=== PATIENT | female | born 1950 | race Caucasian/White ===

== ENCOUNTER 2018-02-21 12:27 | Outpatient (CLI) | payer MEDICARE | END 2018-02-21 12:28 | disposition home or self-care (01) | LOC: BICMRI 12:27 | PROVIDERS: ATTEND Family Medicine | DX: M54.32 Sciatica, left side (principal); I26.99 Other pulmonary embolism without acute cor pulmonale; M51.26 Other intervertebral disc displacement, lumbar region; M51.27 Other intervertebral disc displacement, lumbosacral region; M99.83 Other biomechanical lesions of lumbar region; M48.061 Spinal stenosis, lumbar region without neurogenic claudication | CPT/HCPCS: 72148 ==

== ENCOUNTER 2018-07-21 11:19 | Outpatient (CLI) | payer MEDICARE | END 2018-07-21 11:20 | disposition home or self-care (01) | LOC: BICMAMMO 11:19 | PROVIDERS: ATTEND Family Medicine | DX: Z12.31 Encounter for screening mammogram for malignant neoplasm of breast (principal) | CPT/HCPCS: 77063; 77067 ==

== ENCOUNTER 2019-08-12 10:56 | Outpatient (CLI) | payer MEDICARE ==
--- NOTE | 2019-08-12 11:26 | MMO ---
Bilateral MAMMO Bilat Screen [facility]. CLINICAL HISTORY: Patient is 69 years old and is seen for screening. The patient has no family history of breast cancer. The patient has no personal history of cancer. The patient has a history of right Cyst Aspiration in January, - benign and left Excisional Biopsy in 1991 - benign. VIEWS: The views performed were: bilateral craniocaudal with tomosynthesis; bilateral mediolateral oblique with tomosynthesis; and left mediolateral oblique. FILMS COMPARED: The present examination has been compared to prior imaging studies performed at [facility] on 11/25/2014, 06/26/2016, 06/27/2017 and 07/21/2018. This study has been interpreted with the assistance of computer-aided detection. MAMMOGRAM FINDINGS: There are scattered fibroglandular densities. Finding 1: There are stable benign appearing calcifications seen in both breasts. Finding 2: There are stable benign appearing densities seen in both breasts. There are no suspicious masses, suspicious calcifications, or new areas of architectural distortion. IMPRESSION: THERE IS NO MAMMOGRAPHIC EVIDENCE OF MALIGNANCY. A ROUTINE FOLLOW-UP MAMMOGRAM IN 1 YEAR IS RECOMMENDED. THE RESULTS OF THIS EXAM WERE SENT TO THE PATIENT. ACR BI-RADS Category 2 - Benign finding MAMMOGRAPHY NOTE: 1. A negative mammogram report should not delay a biopsy if a dominant of clinically suspicious mass is present. 2. Approximately 10% to 15% of breast cancers are not detected by mammography. 3. Adenosis and dense breasts may obscure an underlying neoplasm. Reported by: KAROLYN MCDOWELL MD Electonically Signed: [id number]
== END 2019-08-12 10:57 | disposition home or self-care (01) ==
LOC: BICMAMMO 10:56
PROVIDERS: ATTEND Family Medicine
DX: Z12.31 Encounter for screening mammogram for malignant neoplasm of breast (principal); Z91.89 Other specified personal risk factors, not elsewhere classified
CPT/HCPCS: 77063; 77067

== ENCOUNTER 2021-01-24 09:15 | Outpatient (CLI) | payer MEDICARE | END 2021-01-24 09:16 | disposition home or self-care (01) | LOC: BICMAMMO 09:15 | PROVIDERS: ATTEND Family Medicine | DX: Z12.31 Encounter for screening mammogram for malignant neoplasm of breast (principal) | CPT/HCPCS: 77063; 77067 ==

== ENCOUNTER 2021-01-30 08:47 | Outpatient (CLI) | payer MEDICARE | END 2021-01-30 08:48 | disposition home or self-care (01) | LOC: BICULT 08:47 | PROVIDERS: ATTEND Family Medicine | DX: N63.10 Unspecified lump in the right breast, unspecified quadrant (principal); N63.20 Unspecified lump in the left breast, unspecified quadrant ==

== ENCOUNTER 2023-06-03 17:22 | Inpatient (IN) | payer MEDICARE ==
[2023-06-03 19:13] LABS: #Monocytes 0.7 thou/uL (0.11-0.59); #Neutrophils 6.4 thou/uL (1.40-6.50); %Basophils 0.5 % (0.0-1.0); %Eosinophils 0.4 % (0.0-10.0); %Lymphocytes 14.2 % (21.0-51.0); %Monocytes 8.1 % (0.0-10.0); %Neutrophils 76.4 % (42.0-75.0); Hematocrit 38.8 % (36.0-47.0); Hemoglobin 13.4 g/dL (12.0-16.0); Mean Corpuscular HGB CONC 34.5 g/dL (32.0-36.0); Mean Corpuscular Hemoglobin 29.7 pg (27.0-31.0); Mean Platelet Volume 11.4 fL (7.4-10.4); Platelet Count 237 10x3/uL (130-400); RBC Distribution Width 13.5 % (11.5-14.5); Red Blood Cell (RBC) Count 4.51 mill/uL (4.20-5.40); White Blood Cell (WBC) Count 8.3 10x3/uL (4.8-10.8)
[2023-06-03] MEDS ORDERED: LORazepam 2 MG/ML SYR.(CARPUJECT) ONE (19:32)
[2023-06-03 19:36] LABS: ALT (SGPT) 11 U/L (8-55); AST (SGOT) 20 U/L (5-34); Albumin 4.1 g/dL (3.4-4.8); Alkaline Phosphatase 98 U/L (40-110); Anion Gap 18 mmol/L (10-20); BUN (Urea Nitrogen) 15 mg/dL (9.8-20.1); Bilirubin, Total 1.1 mg/dL (0.2-1.2); Calc. Creatinine Clearance 0 mL/min (70-130); Calcium 9.2 mg/dL (7.8-10.44); Carbon Dioxide 18 mmol/L (23-31); Chloride 106 mmol/L (98-107); Estimated GFR 61; Globulin 2.3 g/dL (2.4-3.5); Glucose 109 mg/dL (83-110); Potassium 3.3 mmol/L (3.5-5.1); Protein, Total 6.4 g/dL (5.8-8.1); Sodium 139 mmol/L (136-145)
[2023-06-03] MEDS ORDERED: Senokot S 8.6-50 MG TAB PO PRN (21:26)
[2023-06-03] MEDS ORDERED: Ondansetron ODT 4 MG TAB PO PRN (21:26)
[2023-06-03] MEDS ORDERED: Acetaminophen 325 MG TAB PO PRN (21:26)
[2023-06-03] MEDS ORDERED: Calcium Carbonate 500 MG ChewTAB PO PRN (21:26)
[2023-06-03] MEDS ORDERED: ALPRAZolam 0.5 MG TAB PO PRN (21:28)
[2023-06-04 05:01] LABS: #Basophils 0.1 thou/uL (0.0-0.2); #Eosinphils 0.2 thou/uL (0.0-0.7); #Monocytes 0.7 thou/uL (0.11-0.59); #Neutrophils 3.4 thou/uL (1.40-6.50); %Basophils 0.9 % (0.0-1.0); %Lymphocytes 21.6 % (21.0-51.0); %Monocytes 11.9 % (0.0-10.0); %Neutrophils 61.4 % (42.0-75.0); Hematocrit 35.3 % (36.0-47.0); Hemoglobin 11.8 g/dL (12.0-16.0); Mean Corpuscular HGB CONC 33.4 g/dL (32.0-36.0); Mean Corpuscular Hemoglobin 30.1 pg (27.0-31.0); Mean Platelet Volume 11.2 fL (7.4-10.4); Platelet Count 211 10x3/uL (130-400); RBC Distribution Width 13.9 % (11.5-14.5); Red Blood Cell (RBC) Count 3.92 mill/uL (4.20-5.40); White Blood Cell (WBC) Count 5.6 10x3/uL (4.8-10.8)
[2023-06-04 05:11] LABS: Mean Corpuscular Volume 90.1 fl (78.0-98.0)
[2023-06-04 05:26] LABS: Anion Gap 12 mmol/L (10-20); BUN (Urea Nitrogen) 14 mg/dL (9.8-20.1); Calc. Creatinine Clearance 86 mL/min (70-130); Calcium 8.8 mg/dL (7.8-10.44); Carbon Dioxide 22 mmol/L (23-31); Chloride 108 mmol/L (98-107); Estimated GFR 71; Glucose 105 mg/dL (83-110); Sodium 139 mmol/L (136-145)
[2023-06-04] MEDS ORDERED: Electrolyte Replacement Protocol 1 EACH FS PRN (05:44)
[2023-06-04] MEDS: Potassium Chloride 20 MEQ in Premix Bag 1 BAG IVPB SCH ×2 (05:58→08:52)
[2023-06-04] MEDS ORDERED: Apixaban 5 MG TAB PO SCH (09:00)
[2023-06-04] MEDS ORDERED: Famotidine 20 MG TAB PO SCH (09:00)
[2023-06-04] MEDS ORDERED: Hydrochlorothiazide 25 MG TAB PO SCH (09:00)
[2023-06-04] MEDS: Lisinopril 10 MG TAB PO SCH (09:08)
[2023-06-04] MEDS ORDERED: Meloxicam 15 MG TAB PO PRN (09:42)
[2023-06-04] MEDS ORDERED: Lorazepam 0.5 MG TAB PO PRN (09:46)
[2023-06-04] MEDS ORDERED: Potassium Chloride 20 MEQ TAB PO SCH ×2 (09:46→10:15)
[2023-06-04 12:22] VITALS: BMI 33.0
[2023-06-04] MEDS ORDERED: Carbidopa/Levodopa 25-100 mg Tablet PO SCH ×2 (13:00)
[2023-06-04] MEDS: Cephalexin 250 MG CAP PO SCH (18:18)
[2023-06-04] MEDS: Carbidopa/Levodopa 25-100 mg Tablet PO SCH ×2 (18:18→20:46)
[2023-06-04] MEDS: Carbidopa/Levodopa CR 50-200 mg Tablet PO SCH (20:45)
[2023-06-04] MEDS: Apixaban 2.5 MG TAB PO SCH (20:45)
[2023-06-04] MEDS ORDERED: Non-Formulary Item 1 EACH (Carbidopa/Levodopa [Carbidopa-Levo Er 25-100 Tab] 1 EACH Table PO SCH (21:00)
[2023-06-05] MEDS: Cephalexin 250 MG CAP PO SCH ×3 (01:43→17:50)
[2023-06-05 05:02] LABS: Anion Gap 10 mmol/L (10-20); BUN (Urea Nitrogen) 13 mg/dL (9.8-20.1); Calc. Creatinine Clearance 93 mL/min (70-130); Calcium 8.6 mg/dL (7.8-10.44); Carbon Dioxide 21 mmol/L (23-31); Chloride 107 mmol/L (98-107); Estimated GFR 78; Glucose 103 mg/dL (83-110); Potassium 3.4 mmol/L (3.5-5.1); Sodium 135 mmol/L (136-145)
[2023-06-05] MEDS ORDERED: Potassium Chloride 20 MEQ TAB PO SCH (08:00)
[2023-06-05] MEDS ORDERED: Magnesium 2 GM/50 ML(in water) 2 GM in Premix Bag 1 BAG IVPB SCH (08:00)
[2023-06-05] MEDS ORDERED: Potassium Chloride 8 MEQ TAB PO SCH (09:00)
[2023-06-05] MEDS ORDERED: OMEPRAZOLE 40 MG PO SCH (09:00)
[2023-06-05] MEDS ORDERED: Cholecalciferol 1,000 UNITS (25 MCG) TAB PO SCH (09:00)
[2023-06-05] MEDS: Potassium Chloride 20 MEQ TAB PO SCH (09:17)
[2023-06-05] MEDS: Cholecalciferol 1,000 UNITS (25 MCG) TAB PO SCH (09:18)
[2023-06-05] MEDS: Apixaban 2.5 MG TAB PO SCH ×2 (09:19→21:03)
[2023-06-05] MEDS: Ezetimibe 10 MG TAB PO SCH (09:19)
[2023-06-05] MEDS: Carbidopa/Levodopa 25-100 mg Tablet PO SCH ×4 (09:20→21:03)
[2023-06-05] MEDS: Lisinopril 10 MG TAB PO SCH (09:21)
[2023-06-05 13:22] LABS: SARS-CoV-2 NAA Rapid Test Not Detected (NotDetected)
[2023-06-05] MEDS: Lorazepam 0.5 MG TAB PO SCH ×2 (13:41→21:03)
[2023-06-05] MEDS: Carbidopa/Levodopa CR 50-200 mg Tablet PO SCH (21:03)
[2023-06-06] MEDS: Cephalexin 250 MG CAP PO SCH ×2 (01:59→10:03)
[2023-06-06 05:00] LABS: Anion Gap 8 mmol/L (10-20); BUN (Urea Nitrogen) 14 mg/dL (9.8-20.1); Calc. Creatinine Clearance 100 mL/min (70-130); Calcium 8.6 mg/dL (7.8-10.44); Carbon Dioxide 24 mmol/L (23-31); Chloride 108 mmol/L (98-107); Estimated GFR 85; Glucose 101 mg/dL (83-110); Sodium 136 mmol/L (136-145)
[2023-06-06] MEDS: Lorazepam 0.5 MG TAB PO SCH (06:17)
[2023-06-06] MEDS: Potassium Chloride 20 MEQ TAB PO SCH (10:00)
[2023-06-06] MEDS: Carbidopa/Levodopa 25-100 mg Tablet PO SCH (10:05)
[2023-06-06] MEDS: Apixaban 2.5 MG TAB PO SCH (10:06)
[2023-06-06] MEDS: Cholecalciferol 1,000 UNITS (25 MCG) TAB PO SCH (10:06)
[2023-06-06] MEDS: Ezetimibe 10 MG TAB PO SCH (10:07)
[2023-06-06] MEDS: Lisinopril 10 MG TAB PO SCH (10:09)
[2023-06-06 12:00] VITALS: BP 156/65; TEMP 97.8
[2023-06-07 15:14] LABS: A/G Ratio 1.1 (0.7-1.7); Albumin 3.2 g/dL (2.9-4.4); Alpha 1 0.3 g/dL (0.0-0.4); Alpha 2 0.9 g/dL (0.4-1.0); Gamma 0.6 g/dL (0.4-1.8); Globulin, Total 2.8 g/dL (2.2-3.9); M-Spike Not Observed g/dL (Not Observed)
== END 2023-06-06 12:51 | disposition home or self-care (01) | DRG 204 ==
LOC: ERS 17:22 → 2NO 20:34
PROVIDERS: ADMIT Student in an Organized Health Care Education/Training Program; ATTEND Internal Medicine Critical Care Medicine
DX: R06.82 Tachypnea, not elsewhere classified (principal); N39.0 Urinary tract infection, site not specified; T50.905A Adverse effect of unspecified drugs, medicaments and biological substances, initial encounter; G20 Parkinson's disease; G47.33 Obstructive sleep apnea (adult) (pediatric); E87.6 Hypokalemia; I10 Essential (primary) hypertension; Z96.653 Presence of artificial knee joint, bilateral; K21.9 Gastro-esophageal reflux disease without esophagitis; B96.20 Unspecified Escherichia coli [E. coli] as the cause of diseases classified elsewhere; Z20.822 Contact with and (suspected) exposure to COVID-19; F41.9 Anxiety disorder, unspecified; Z79.899 Other long term (current) drug therapy; Z88.0 Allergy status to penicillin; Z88.2 Allergy status to sulfonamides; Z86.711 Personal history of pulmonary embolism; Z79.01 Long term (current) use of anticoagulants; Z99.89 Dependence on other enabling machines and devices; Z88.8 Allergy status to other drugs, medicaments and biological substances; Z90.49 Acquired absence of other specified parts of digestive tract; Z90.710 Acquired absence of both cervix and uterus
CPT/HCPCS: 36415; 71045; 80048; 80053; 83735; 84155; 84165; 84484; 85025; 93005; 96374; J2060; J3475; J3480; U0002

== ENCOUNTER 2023-07-11 10:48 | Emergency (ER) | payer MEDICARE ==
[2023-07-11 11:35] LABS: #Monocytes 0.6 thou/uL (0.11-0.59); #Neutrophils 8.2 thou/uL (1.40-6.50); %Basophils 0.4 % (0.0-1.0); %Eosinophils 0.2 % (0.0-10.0); %Lymphocytes 4.6 % (21.0-51.0); %Monocytes 6.7 % (0.0-10.0); %Neutrophils 87.8 % (42.0-75.0); Hematocrit 34.9 % (36.0-47.0); Hemoglobin 11.7 g/dL (12.0-16.0); Mean Corpuscular HGB CONC 33.5 g/dL (32.0-36.0); Mean Corpuscular Hemoglobin 29.9 pg (27.0-31.0); Mean Corpuscular Volume 89.3 fl (78.0-98.0); Mean Platelet Volume 10.8 fL (7.4-10.4); Platelet Count 206 10x3/uL (130-400); RBC Distribution Width 14.6 % (11.5-14.5); Red Blood Cell (RBC) Count 3.91 mill/uL (4.20-5.40); White Blood Cell (WBC) Count 9.4 10x3/uL (4.8-10.8)
[2023-07-11 12:00] LABS: ALT (SGPT) Less than 7 U/L (8-55); AST (SGOT) 5 U/L (5-34); Albumin 3.4 g/dL (3.4-4.8); Alkaline Phosphatase 77 U/L (40-110); Anion Gap 9 mmol/L (10-20); BUN (Urea Nitrogen) 12 mg/dL (9.8-20.1); Bilirubin, Total 1.3 mg/dL (0.2-1.2); Calc. Creatinine Clearance 0 mL/min (70-130); Calcium 8.7 mg/dL (7.8-10.44); Carbon Dioxide 31 mmol/L (23-31); Chloride 100 mmol/L (98-107); Estimated GFR 93; Globulin 1.9 g/dL (2.4-3.5); Glucose 108 mg/dL (83-110); Potassium 3.1 mmol/L (3.5-5.1); Protein, Total 5.3 g/dL (5.8-8.1); Sodium 137 mmol/L (136-145)
[2023-07-11 12:03] LABS: Troponin I Less than 0.010 ng/mL (< 0.028)
[2023-07-11] MEDS ORDERED: Potassium Chloride 20 MEQ TAB ONE (12:50)
[2023-07-11 12:53] LABS: Bacteria/HPF None Seen HPF (None Seen); Bilirubin Negative (Negative); Blood, Urine Negative (Negative); CAUTI Indications for Culture Fever or rigors; Clarity Clear (Clear); Glucose, Urine (Dipstick) Normal (Negative); Ketone, Urine 10 mg/dL (Negative); Leukocyte Negative Leu/uL (Negative); Nitrite Negative (Negative); Protein, Urine (Dipstick) Negative (Neg-Trace); RBC/HPF 0-3 HPF (0-3); Specific Gravity, Urine 1.028 (1.002-1.036); Squamous Epithelial 0-3 HPF (0-3); Urobilinogen Normal mg/dL (Less than 2); WBC/HPF 0-3 HPF (0-3)
[2023-07-11 12:55] LABS: Urine Culture Reflex No No
[2023-07-11] MEDS ORDERED: Carbidopa/Levodopa 25-100 mg Tablet PO SCH ×2 (13:30→13:45)
[2023-07-11] MEDS ORDERED: Iopamidol-370 76% 500 ML MDV (1 ML CHARGE) ONE (14:57)
== END 2023-07-11 14:06 | disposition home or self-care (01) ==
LOC: ERS 10:48
DX: R55 Syncope and collapse (principal); R00.1 Bradycardia, unspecified; E87.6 Hypokalemia; R11.0 Nausea; K21.9 Gastro-esophageal reflux disease without esophagitis; Z79.01 Long term (current) use of anticoagulants
CPT/HCPCS: 36415; 71045; 71275; 80053; 81001; 84484; 85025; 93005; Q9967

== ENCOUNTER 2024-09-16 13:48 | Outpatient (CLI) | payer MEDICARE | END 2024-09-16 13:49 | disposition home or self-care (01) | LOC: BICMAMMO 13:48 | PROVIDERS: ATTEND Family Medicine | DX: Z12.31 Encounter for screening mammogram for malignant neoplasm of breast (principal); Z78.0 Asymptomatic menopausal state; N63.11 Unspecified lump in the right breast, upper outer quadrant; Z91.89 Other specified personal risk factors, not elsewhere classified | CPT/HCPCS: 77063; 77067; 77080 ==

== ENCOUNTER 2024-09-17 13:46 | Outpatient (CLI) | payer MEDICARE | END 2024-09-17 13:47 | disposition home or self-care (01) | LOC: BICULT 13:46 | PROVIDERS: ATTEND Family Medicine | DX: N63.11 Unspecified lump in the right breast, upper outer quadrant (principal) ==

== ENCOUNTER 2025-09-17 10:32 | Outpatient (CLI) | payer MEDICARE | END 2025-09-17 10:33 | disposition home or self-care (01) | LOC: BICMAMMO 10:32 | PROVIDERS: ATTEND Family Medicine | DX: Z12.31 Encounter for screening mammogram for malignant neoplasm of breast (principal); Z91.89 Other specified personal risk factors, not elsewhere classified | CPT/HCPCS: 77063; 77067 ==

== ENCOUNTER 2025-09-30 11:06 | Day surgery (SDC) | payer MEDICARE ==
[2025-09-29 15:05] VITALS: BMI 28.5
[2025-09-30] MEDS ORDERED: Lidocaine 1% PF 5 ML VIAL ONE (12:49)
[2025-09-30] MEDS ORDERED: PHENYLEPHRINE-NS 100 MCG/ML 10 ML SYRINGE ONE (13:17)
== END 2025-09-30 14:31 | disposition home or self-care (01) ==
LOC: SDC 11:06
PROVIDERS: ATTEND Internal Medicine Gastroenterology
PROC: 0DBL8ZZ Excision of Transverse Colon, Via Natural or Artificial Opening Endoscopic (ICD-10-PCS; principal; 2025-09-30)
DX: Z12.11 Encounter for screening for malignant neoplasm of colon (principal); D12.3 Benign neoplasm of transverse colon; K64.8 Other hemorrhoids; K57.30 Diverticulosis of large intestine without perforation or abscess without bleeding; K21.9 Gastro-esophageal reflux disease without esophagitis; G20.A1 Parkinson's disease without dyskinesia, without mention of fluctuations; I35.9 Nonrheumatic aortic valve disorder, unspecified; I26.99 Other pulmonary embolism without acute cor pulmonale; Z86.0101 Personal history of adenomatous and serrated colon polyps; Z90.710 Acquired absence of both cervix and uterus; Z90.49 Acquired absence of other specified parts of digestive tract; Z88.0 Allergy status to penicillin; Z88.2 Allergy status to sulfonamides; Z88.8 Allergy status to other drugs, medicaments and biological substances; Z79.899 Other long term (current) drug therapy
CPT/HCPCS: 88305

== ENCOUNTER 2025-10-19 23:40 | Observation (INO) | payer MEDICARE ==
[2025-10-20 00:21] VITALS: BMI 28.3
[2025-10-20] MEDS ORDERED: Acetaminophen 325 MG TAB PO PRN (02:26)
[2025-10-20] MEDS ORDERED: Ondansetron PF 4 MG/2 ML Vial IVP PRN (02:26)
[2025-10-20 04:42] LABS: #Basophils 0.05 10x3/uL (0.0-0.2); #Eosinophils 0.12 10x3/uL (0.0-0.7); #Monocytes 0.59 10x3/uL (0.11-0.59); #Neutrophils 5.71 10x3/uL (1.40-6.50); %Basophils 0.7 % (0.0-1.0); %Eosinophils 1.6 % (0.0-10.0); %Lymphocytes 14.3 % (21.0-51.0); %Monocytes 7.8 % (0.0-10.0); %Neutrophils 75.3 % (42.0-75.0); Hematocrit 36.0 % (36.0-47.0); Hemoglobin 11.8 g/dL (12.0-16.0); Mean Corpuscular Hemoglobin 30.8 pg (27.0-31.0); Mean Corpuscular Volume 94.0 fL (78.0-98.0); Platelet Count 187 10x3/uL (130-400); Red Blood Cell (RBC) Count 3.83 mill/uL (4.20-5.40); White Blood Cell (WBC) Count 7.57 10x3/uL (4.8-10.8)
[2025-10-20 04:50] LABS: Anion Gap 13 mmol/L (10-20); BUN (Urea Nitrogen) 17 mg/dL (9.8-20.1); Calc. Creatinine Clearance 97 mL/min (70-130); Calcium 8.5 mg/dL (7.8-10.44); Carbon Dioxide 23 mmol/L (23-31); Chloride 108 mmol/L (98-107); Glucose 94 mg/dL (83-110); Potassium 3.3 mmol/L (3.5-5.1); Sodium 141 mmol/L (136-145)
[2025-10-20 06:20] LABS: Magnesium 1.9 mg/dL (1.6-2.6)
[2025-10-20] MEDS: Pantoprazole 40 MG DR.TAB PO SCH (09:28)
[2025-10-20] MEDS: Apixaban 5 MG TAB PO SCH (09:28)
[2025-10-20] MEDS: Cholecalciferol 1,000 UNITS (25 MCG) TAB PO SCH (09:28)
[2025-10-20 12:14] VITALS: TEMP 98.3
[2025-10-20 12:48] VITALS: BMI 28.3
[2025-10-20 16:19] VITALS: BP 144/78
[2025-10-20] MEDS ORDERED: Gabapentin 100 MG CAP PO SCH (21:00)
[2025-10-20] MEDS ORDERED: Sertraline 25 MG TAB PO SCH (21:00)
[2025-10-20] MEDS ORDERED: Ezetimibe 10 MG TAB PO SCH (21:00)
== END 2025-10-20 17:45 | disposition home or self-care (01) ==
LOC: 2NO 23:40
PROVIDERS: ADMIT Internal Medicine; ATTEND Hospitalist
DX: R55 Syncope and collapse (principal); G47.33 Obstructive sleep apnea (adult) (pediatric); I35.0 Nonrheumatic aortic (valve) stenosis; E78.5 Hyperlipidemia, unspecified; K21.9 Gastro-esophageal reflux disease without esophagitis; G20.A1 Parkinson's disease without dyskinesia, without mention of fluctuations; Z88.0 Allergy status to penicillin; Z88.2 Allergy status to sulfonamides; Z88.8 Allergy status to other drugs, medicaments and biological substances; Z90.49 Acquired absence of other specified parts of digestive tract; Z90.710 Acquired absence of both cervix and uterus; Z98.49 Cataract extraction status, unspecified eye; Z98.890 Other specified postprocedural states
CPT/HCPCS: 36415; 80048; 83735; 85025; 93306